=== PATIENT | female | born 1985 | race Asian ===

== ENCOUNTER 2018-11-05 07:18 | Inpatient (IN) | payer BC ==
[~2018-11-05] VITALS: Ht 167.6 cm; Wt 66.4 kg
[~2018-11-05 07:18] MED LIST: FERROUS SU325 MG/TAB PO; PERCOCET 325 MG1 TA2 PO; SENOKOT S 50 MG1 TAB PO
[2018-11-06] VITALS (37 sets, daily range): BP systolic 91–123; BP diastolic 52–66; PULSE 78–101; TEMP 97.7–98.6
--- NOTE | 2018-11-06 07:20 | NUR ---
Patient ambulatory to LR 5 with spouse, changed into gown, and FHR/TOCO monitors placed and explained. Patient denies any regular contractions/leaking of fluid/vaginal bleeding. Plan of care discussed. 0730: IV started in left hand, blood obtained and to lab, LR infusing. 0750: SVE-4/80/-2 and patient tolerates well. Plan of induction discussed. 0805: Patient states she wants epidural before Dr. Talbert comes to break water. Dr. Talbert called and orders for patient to have epidural when she wants it. Patient requests epidrual. 0815: Gricel GALAN called and notified. 0853: Dr. Talbert calls and states she will wait closer to noon to break water and will go to office first. 0900: Patient sitting at the edge of bed and Gricel GALAN at bedside for procedure. 0905: Test dose given and patient tolerates well. Patient repositioned and precautions/plan of care gone over.
[2018-11-06] MEDS ORDERED: CONCEPT DHA1 CAP PO (07:33)
[2018-11-06 08:17] LABS: BASO % 0.3 % (0.0-2.0); EOS # 0.2 (0.0-0.7); EOS % 1.7 % (0-4.0); GRAN # 8.7 (1.4-6.5); GRAN % 74.1 % (42.2-75.2); HEMOGLOBIN 11.5 g/dl (12.5-16.0); LYMPH # 2.2 (1.2-3.4); LYMPH % 18.8 % (20.0-51.0); MEAN CELL VOLUME 97 fl (80.0-100.0); MEAN CORPUSCULAR HEMOGLOBIN 32 pg (27.0-31.0); MEAN CORPUSCULAR HGB CONC 33 g/dl (33.0-37.0); MEAN PLATELET VOLUME 10.9 fl (7.4-10.4); MONO # 0.5 (0.1-0.6); MONO % 4.2 % (1.7-9.3); PLATELET COUNT 233 K/mm3 (130-400); RED BLOOD COUNT 3.55 M/mm3 (4.10-5.30); REDCELL DISTRIBUTION WIDTH-CV 13.9 % (11.5-14.5)
[2018-11-06 08:32] LABS: HEMATOCRIT 34.4 % (37.0-47.0)
[2018-11-06] MEDS ORDERED: BONJESTA ER 201 EACH PO (12:18)
--- NOTE | 2018-11-06 13:40 | NUR ---
at bedside and assessing patient and FHR strip. 1345: SVE-6/90/-2 and AROM at this time with clear fluid noted. Plan of care discussed. Patient turned right lateral with left leg resting in stirrup.
--- NOTE | 2018-11-06 15:00 | NUR ---
Patient very uncomfortable with contractions and has pushed epidural button. Mague notified and at bedside. 1505: Patient states she is feeling more pressure. SVE:9-/100/0 1512: Dr. Talbert called and notified and is on the way. 1515: SVE-10100/+1 and patient feeling the urge to push. 1525: White out and patient tolerates well. 1530: Dr. Talbert at bedside and patient set up for vaginal delivery, bed taken apart, and feet in stirrups. Pericare done. Patient begins pushing with Dr. Talbert. FHR baseline 120bpm and lowering to 110-115bpm. 1540: Spontaneous vaginal delivery of head and followed by body. Infant to patient abdomen and Atul RN assumes care of infant. 1544: Spontaneous vaginal delivery of placenta and pitocin started per protocol. Fundal massage done and bleeding moderate. Dr. Talbert orders for methergine. begins to repair laceration at this time. 1547: Methergine IM given in left thigh. Fundal massage done/firm/bleeding WNL. Pericare done/ice pack to perineum/patient repositioned and plan of care discussed.
[2018-11-07 02:30] VITALS: BP 92/57; PULSE 78; TEMP 97.9
[2018-11-07 06:50] LABS: HEMATOCRIT 29.2 % (37.0-47.0); HEMOGLOBIN 9.7 g/dl (12.5-16.0)
[2018-11-07 08:30] VITALS: BP 97/65; PULSE 84; TEMP 97.9
--- NOTE | 2018-11-07 08:30 | NUR ---
Rests in bed with eyes closed. Awakens by this nurse. Vital signs done. Tylenol 650 mg given for pain.
--- NOTE | 2018-11-07 10:31 | NUR ---
Initial visit attempt; Patient sleeping, Territory Service Representative left card of congratulations for the of her daughter and information regarding the availability of spiritual care at [facility].
[2018-11-07 12:30] VITALS: BP 97/54; PULSE 86; TEMP 97.6
[2018-11-07 16:00] VITALS: BP 100/56; PULSE 71; TEMP 98.2
[2018-11-07 20:55] VITALS: BP 103/61; PULSE 79; TEMP 97.4
[2018-11-08 07:30] VITALS: BP 96/62; PULSE 60; TEMP 98.2
[2018-11-08] MEDS ORDERED: PERCOCET 325 MG1 TA2 PO (08:06)
== END 2018-11-08 16:00 | disposition home or self-care (01) | DRG 807 ==
LOC: LDR 11-06 06:48 → OB 11-06 21:33 → LDR 11-09 14:44
PROVIDERS: ADMIT Obstetrics & Gynecology
PROC: 10E0XZZ Delivery of Products of Conception, External Approach (ICD-10-PCS; principal; 2018-11-06)
PROC: 0KQM0ZZ Repair Perineum Muscle, Open Approach (ICD-10-PCS; 2018-11-06)
PROC: 10907ZC Drainage of Amniotic Fluid, Therapeutic from Products of Conception, Via Natural or Artificial Opening (ICD-10-PCS; 2018-11-06)
PROC: 3E033VJ Introduction of Other Hormone into Peripheral Vein, Percutaneous Approach (ICD-10-PCS; 2018-11-06)
DX: O48.0 Post-term pregnancy (principal); Z37.0 Single live birth; O99.02 Anemia complicating childbirth; O70.1 Second degree perineal laceration during delivery; Z3A.40 40 weeks gestation of pregnancy; D64.9 Anemia, unspecified
CPT/HCPCS: J2210; J2400; J2405; J2590; J7120